=== PATIENT | male | born 1950 | race Caucasian/White ===

== ENCOUNTER 2019-06-13 08:32 | Outpatient (CLI) | payer OTHER | END 2019-06-13 23:59 | disposition home or self-care (01) | LOC: CARD 08:32 | PROVIDERS: ATTEND Student in an Organized Health Care Education/Training Program | DX: G56.00 Carpal tunnel syndrome, unspecified upper limb (principal); G62.9 Polyneuropathy, unspecified | CPT/HCPCS: 95886; 95908 ==